=== PATIENT | male | born 1955 ===

== ENCOUNTER 2022-02-15 10:04 | Outpatient (CLI) | payer OTHER, MEDICARE, SELFPAY ==
[2022-02-15 10:35] LABS: Basophils Absolute Auto 0.1 K/mm3 (0.0-0.1); Basophils Percent Auto 1.3 % (0.2-1.2); Eosinophils Absolute Auto 0.1 K/mm3 (0-0.3); Eosinophils Percent Auto 2.2 % (0-4.4); Hematocrit 50.2 % (42.0-52.0); Hemoglobin 16.8 g/dL (14.0-18.0); Immature Granulocyte Absolute 0.04 K/mm3 (0.00-0.031); Immature Granulocyte Percent A 0.7 % (0-0.5); Lymphocytes Absolute Auto 1.26 K/mm3 (0.9-3.2); Lymphocytes Percent Auto 23.4 % (18.3-44.2); Mean Corpuscular HGB Conc 33.5 g/dl (32-36); Mean Corpuscular Hemoglobin 30.7 pg (26-34); Mean Corpuscular Volume 91.6 fl (80-100); Mean Platelet Volume 9.4 fl (7.4-10.4); Monocytes Absolute Auto 0.6 K/mm3 (0.1-0.6); Monocytes Percent Auto 10.4 % (2.6-8.5); Neutrophils Absolute Auto 3.3 K/mm3 (1.3-6.7); Platelet Count Result 216 k/mm3 (150-375); Red Blood Count 5.48 M/mm3 (4.6-6.20); Red Cell Distribution Width 13.4 % (11.5-14.5); White Blood Count 5.4 K/mm3 (4.5-10.0)
[2022-02-19 15:33] LABS: Alpha 1 Globulin 0.3 g/dL (0.2-0.3); Alpha 2 Globulin 0.9 g/dL (0.5-0.9); Beta 1 Globulin 0.5 g/dL (0.4-0.6); Gamma Globulin 1.1 g/dL (0.8-1.7); Protein, Total 7.2 g/dL (6.1-8.1)
[2022-02-20 23:00] LABS: Creatinine, Random Urine 108 mg/dL (20-320); Total Protein/Creatinine Ratio 250 mg/g creat (25-148)
== END 2022-02-15 10:05 | disposition home or self-care (01) ==
LOC: ANHLAB 10:09
PROVIDERS: PCP Emergency Medicine; Visit Provider Emergency Medicine
DX: E83.52 Hypercalcemia (principal)
CPT/HCPCS: 36415; 82570; 84155; 84156; 84165; 84166; 85025; 86334